=== PATIENT | male | born 1990 | race Caucasian/White ===

== ENCOUNTER 2017-09-17 13:23 | Inpatient (IN) | payer OTHER ==
[2017-09-17] MEDS ORDERED: ISOVUE-370 76%-LOCM 1 ML ONE (15:43)
[2017-09-17] MEDS ORDERED: Morphine 4 MG/ML VIAL ONE ×2 (16:02→17:41)
[2017-09-17 16:14] LABS: Hemoglobin 14.2 g/dL (14.0-18.0); Mean Corpuscular HGB CONC 31.7 g/dL (32.0-36.0); Mean Corpuscular Hemoglobin 27.4 pg (27.0-31.0); Mean Corpuscular Volume 86.4 fl (80.0-94.0); Mean Platelet Volume 7.3 fL (7.4-10.4); Platelet Count 499 thou/uL (130-400); RBC Distribution Width 14.6 % (11.5-14.5); White Blood Cell (WBC) Count 22.7 thou/uL (4.8-10.8)
[2017-09-17 16:37] LABS: Band 22 % (5-11); Eosinophils 1 % (0-10); Lymphocytes 6 % (21-51); MDiff Complete? YES; Monocytes 9 % (0-10); Neutrophil 62 % (42-75); PLT Morphology Comment Appears Increased; Toxic Granulation SLIGHT
[2017-09-17] MEDS ORDERED: Clindamycin/D5W 900 mg/50 ml Premix Bag ONE (17:41)
[2017-09-17] MEDS ORDERED: Piperacillin/Tazobactam 4.5 GM in Sodium Chloride 0.9% 100 ML IVPB ONE (17:45)
[2017-09-17 17:53] LABS: Bilirubin Negative (Negative); Blood, Urine Negative (Negative); Clarity CLEAR (Clear); Glucose, Urine (Dipstick) Negative (Negative); Leukocyte Negative (Negative); Nitrite Negative (Negative); Protein, Urine (Dipstick) Negative (Neg-Trace); Specific Gravity, Urine 1.021 (1.002-1.036)
[2017-09-17 18:06] LABS: Amphetamine Not Detected (NotDetected); Barbiturates Screen Not Detected (NotDetected); Benzodiazepine Screen Detected (NotDetected); Cocaine Metabolite Screen Not Detected (NotDetected); Medtox Control Line Valid? VALID (VALID); Medtox Reader # READER 4; Methadone Not Detected (NotDetected); Methamphetamine Not Detected (NotDetected); Opiate Screen Detected (NotDetected); Oxycodone Screen Not Detected (NotDetected); Phencyclidine (PCP) Not Detected (NotDetected); THC/Cannabinoid Screen Detected (NotDetected); Tricyclic Screen Not Detected (NotDetected)
[2017-09-17] MEDS ORDERED: Acetaminophen 500 MG TAB ONE (18:32)
[2017-09-17] MEDS ORDERED: Fentanyl 100 MCG/2 ML VIAL ONE (19:13)
[2017-09-17 19:40] LABS: ALT (SGPT) 24 U/L (8-55); AST (SGOT) 32 U/L (5-34); Alkaline Phosphatase 100 U/L (40-150); Anion Gap 12 mmol/L (10-20); BUN (Urea Nitrogen) 8 mg/dL (8.9-20.6); Bilirubin, Total 0.2 mg/dL (0.2-1.2); CK (CPK) 33 U/L (30-200); CRP (Inflammatory) 14.85 mg/dL (= or < 0.5); Calc. Creatinine Clearance 0 mL/min (70-130); Calcium 8.4 mg/dL (7.8-10.44); Carbon Dioxide 27 mmol/L (22-29); Chloride 100 mmol/L (98-107); Estimated GFR-MDRD Greater than 90; Globulin 3.3 g/dL (2.4-3.5); Glucose 111 mg/dL (70-105); Potassium 3.3 mmol/L (3.5-5.1); Protein, Total 6.3 g/dL (6.0-8.3); Sodium 136 mmol/L (136-145)
--- NOTE | 2017-09-17 19:56 | RAD ---
PORTABLE CHEST: 09/17/17 HISTORY: Central line placement. COMPARISON: A 03/10/17 exam. Right sided central line has been placed. Catheter tip overlies the region of the proximal to mid sup erior vena cava. I do not see any signs of pneumothorax. IMPRESSION: Placement of right sided central line. No signs of pneumothorax. POS: [facility]
[2017-09-17 20:17] LABS: Lactic Acid 0.9 mmol/L (0.5-2.2)
--- NOTE | 2017-09-17 21:08 | CT ---
CT OF PELVIS PERFORMED WITH INTRAVENOUS CONTRAST ENHANCEMENT: 09/17/17 HISTORY: Patient reported falling on right side week and a half ago. Now with fever. The intrapelvic contents are unremarkable. No significant adenopathy. No fluid collections. Osseous structures are normal. I see no evidence for osteomyelitis. There is a large superficial fluid collection in the right buttocks region. It is compressing the glu teus eric muscle. This measures 6.5 x 14 x 13 cm in size. There is no air seen associated with thi s. This could represent an infected collection. It could represent a hematoma given the history of a fall. No other findings. IMPRESSION: Large superficial fluid collection compressing the right gluteus eric musculature without deep ext ension. This could represent a hematoma. I cannot exclude this is an infected fluid collection. POS: [facility]
[2017-09-17] MEDS ORDERED: Acetaminophen 325 MG TAB PO PRN (21:34)
[2017-09-17] MEDS ORDERED: Ondansetron HCl/PF 4 MG/2 ML Vial IVP PRN (21:34)
[2017-09-17] MEDS ORDERED: Ondansetron ODT 4 MG TAB SL PRN (21:34)
[2017-09-17] MEDS ORDERED: Morphine 2 mg/2ml in 0.9% NaCl PF SYRINGE SLOW IVP PRN (21:36)
[2017-09-17] MEDS ORDERED: Dextrose 5 % And 0.9 % NaCl 1,000 ML IV SCH (21:45)
[2017-09-17] MEDS: Morphine 2 MG/ML SYRINGE SLOW IVP PRN (21:58)
[2017-09-17 23:06] VITALS: BMI 21.2
[2017-09-17] MEDS ORDERED: Clindamycin/D5W 600 MG in Premix Bag 1 BAG IVPB SCH (23:59)
[2017-09-18] MEDS: Morphine 2 MG/ML SYRINGE SLOW IVP PRN ×2 (00:44→02:56)
[2017-09-18] MEDS ORDERED: Piperacillin/Tazobactam 3.375 GM in Sodium Chloride 0.9% 100 ML IVPB SCH (02:00)
[2017-09-18] MEDS ORDERED: Ondansetron HCl/PF 4 MG/2 ML Vial IVP PRN ×2 (04:02→13:06)
[2017-09-18] MEDS ORDERED: Ondansetron ODT 4 MG TAB SL PRN (04:02)
[2017-09-18] MEDS ORDERED: Acetaminophen 500 MG TAB PO PRN (04:03)
[2017-09-18] MEDS ORDERED: Morphine 5 mg/5 ml in 0.9% NaCl/PF SYRINGE SLOW IVP PRN (04:05)
[2017-09-18] MEDS ORDERED: Morphine 2 MG/ML SYRINGE SLOW IVP PRN (04:05)
[2017-09-18] MEDS: Dextrose 5 % And 0.9 % NaCl 1,000 ML IV SCH ×4 (04:58→20:01)
[2017-09-18] MEDS: Morphine 4 MG/ML VIAL SLOW IVP PRN ×8 (04:58→22:20)
[2017-09-18] MEDS: Clindamycin/D5W 600 MG in Premix Bag 1 BAG IVPB SCH ×4 (05:04→23:34)
[2017-09-18] MEDS: Piperacillin/Tazobactam 3.375 GM in Sodium Chloride 0.9% 100 ML IVPB SCH ×3 (08:39→20:01)
[2017-09-18] MEDS ORDERED: Fentanyl 100 MCG/2 ML VIAL ONE ×2 (11:52→13:35)
[2017-09-18] MEDS ORDERED: HYDROmorphone 0.5 MG/0.5 ML SYRINGE ONE ×6 (12:54→14:33)
[2017-09-18] MEDS ORDERED: Promethazine HCl 25 MG/ML VIAL SLOW IVP PRN (13:06)
[2017-09-18] MEDS ORDERED: Promethazine HCl 25 MG/ML VIAL IM PRN (13:06)
[2017-09-18] MEDS ORDERED: HYDROmorphone 2 MG/ML VIAL SLOW IVP PRN (13:06)
[2017-09-18] MEDS ORDERED: Meperidine HCl/PF 25 MG/ML VIAL ONE (13:23)
--- NOTE | 2017-09-18 14:45 | HP ---
DATE: 09/18/2017 CHIEF COMPLAINT: Right buttock abscess. HISTORY OF PRESENT ILLNESS: Patient is a 27-year-old white male. He has a longstanding history of h eroin addiction. He notes that he has had progressive pain in his right buttock for about a week and a half. He states that he fell on this side a week and half ago or so. He also is concerned about possible spider bite. It is noted that he has had large deep abscesses drained on both of his upper extremities within the past year. He does continue to inject IV drugs. When he presented to the [facility] room, he was febrile and tachycardic. He was started on IV fluids and IV antibiotics and give n pain medication. His tachycardia resolved overnight, blood pressures remained stable. He was afeb rile at 4:00 this morning up to a temperature of 101.1. PAST MEDICAL HISTORY: Significant for prior deep abscesses in both upper extremities. He also has a n ongoing history of IV drug abuse using heroin. PAST SURGICAL HISTORY: I and D and in 2015 of right upper extremity abscess. Incision and drainage of left upper extremity abscess in 02/2017. MEDICATIONS: At home, none. ALLERGIES: SULFA MEDICATIONS. PERSONAL AND SOCIAL HISTORY: He is single, but has a girlfriend. He lives in [place]. 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 He smokes about a half-pack per day of cigarettes and denies alcohol use. REVIEW OF SYSTEMS: Otherwise, unremarkable. FAMILY HISTORY: Noncontributory. PHYSICAL EXAMINATION: VITAL SIGNS: Maximum temperature is 101.1, current temperature 98.6, pulse 92, blood pressure 118/74 . GENERAL: A well-developed, well-nourished, pleasant white male, resting in bed. He is alert and denisa ented x3. He has obvious pain in his right buttock. HEAD, EYES, EARS, NOSE, AND THROAT: Unremarkable. NECK: Supple. LUNGS: Clear to auscultation. CARDIAC: Regular rate and rhythm. ABDOMEN: Soft, nontender, nondistended. EXTREMITIES: He has a large fluctuant painful mass on his right buttock that appears to measure abou t 15 cm in maximum dimension. ASSESSMENT: Patient with a large right buttock abscess. A CT scan was obtained in the emergency mai which confirmed this. The measurements on CT scan were 14 x 13 x 6.5 cm. Laboratory studies revea led elevated white blood cell count of 22.7. PLAN: Incision and drainage. I have discussed this with the patient. Further care will depend upon intraoperative findings. He will certainly require long-term wound care, likely with packing with ina orourke.
[2017-09-18] MEDS ORDERED: Ondansetron HCl/PF 4 MG/2 ML Vial ONE (16:47)
[2017-09-18] MEDS ORDERED: Ketorolac Tromethamine 30 MG/ML VIAL ONE (16:47)
[2017-09-18] MEDS ORDERED: Propofol 200 MG/20 ML VIAL ONE (16:47)
[2017-09-18] MEDS ORDERED: Dexamethasone 20 MG/5 ML VIAL ONE (16:47)
[2017-09-18] MEDS ORDERED: Succinylcholine Chloride 20 MG/ML 10 ml SYRINGE FS ONE (16:47)
[2017-09-18] MEDS ORDERED: Lidocaine 1% PF 5 ML VIAL ONE (16:47)
[2017-09-19] MEDS: Morphine 4 MG/ML VIAL SLOW IVP PRN ×7 (00:55→10:18)
[2017-09-19] MEDS: Piperacillin/Tazobactam 3.375 GM in Sodium Chloride 0.9% 100 ML IVPB SCH ×2 (02:18→07:36)
[2017-09-19] MEDS: Clindamycin/D5W 600 MG in Premix Bag 1 BAG IVPB SCH (05:24)
[2017-09-19] MEDS: Dextrose 5 % And 0.9 % NaCl 1,000 ML IV SCH (05:35)
[2017-09-19] MEDS ORDERED: Ketorolac Tromethamine 30 MG/ML VIAL IVP PRN (05:45)
[2017-09-19 06:40] LABS: Anion Gap 14 mmol/L (10-20); BUN (Urea Nitrogen) 6 mg/dL (8.9-20.6); Calc. Creatinine Clearance 174 mL/min (70-130); Calcium 8.8 mg/dL (7.8-10.44); Carbon Dioxide 24 mmol/L (22-29); Chloride 108 mmol/L (98-107); Estimated GFR-MDRD Greater than 90; Glucose 152 mg/dL (70-105); Potassium 3.7 mmol/L (3.5-5.1); Sodium 142 mmol/L (136-145)
[2017-09-19 06:45] LABS: #Lymphocytes 1.7 thou/uL (1.20-3.40); #Monocytes 1.2 thou/uL (0.11-0.59); #Neutrophils 18.3 thou/uL (1.40-6.50); %Eosinophils 0.1 % (0.0-10.0); %Lymphocytes 8.1 % (21.0-51.0); %Monocytes 5.5 % (0.0-10.0); %Neutrophils 86.3 % (42.0-75.0); Hemoglobin 9.6 g/dL (14.0-18.0); Mean Corpuscular HGB CONC 31.4 g/dL (32.0-36.0); Mean Corpuscular Hemoglobin 27.4 pg (27.0-31.0); Mean Corpuscular Volume 87.2 fl (80.0-94.0); Mean Platelet Volume 6.3 fL (7.4-10.4); Platelet Count 484 thou/uL (130-400); RBC Distribution Width 14.1 % (11.5-14.5); Red Blood Cell (RBC) Count 3.51 mill/uL (4.70-6.10); White Blood Cell (WBC) Count 21.3 thou/uL (4.8-10.8)
[2017-09-19 08:28] VITALS: BP 111/67; TEMP 97.7
[2017-09-19] MEDS ORDERED: Morphine 4 MG/ML VIAL SLOW IVP SCH (09:15)
--- NOTE | 2017-09-19 16:11 | OP ---
DATE OF OPERATION: 09/18/2017 PREOPERATIVE DIAGNOSIS: Large right buttock abscess. POSTOPERATIVE DIAGNOSIS: Large right buttock abscess with right upper arm abscess also. OPERATION PERFORMED: Extensive incision and drainage of a 15 cm right buttock abscess, incision and drainage of right upper arm abscess measuring about 3.5 cm. SURGEON: Heber Dolan M.D. ANESTHESIA: General endotracheal. INDICATIONS: The patient is a 27-year-old white male with a history of ongoing heroin addiction. He has had extensive abscesses of both of his upper extremities for which he has undergone operative dr acosta with prolonged healing of these areas. He now presents to the hospital with a 15 cm bulging p ainful right buttock abscess. He acknowledges that this has been progressive over the past week and a half and cannot offer an explanation as to why he did not present for treatment sooner. He is febr ile and tachycardic, at that time he presented. He was hydrated with IV fluids and given IV antibiot ics and is now taken to the operating room for incision and drainage of this large right buttock absc ess. OPERATIVE PROCEDURE IN DETAIL: Informed consent was obtained. The patient was taken to the operatin g room where general endotracheal anesthesia was obtained with the patient in supine position. He wa s then rolled over in the left lateral decubitus position exposing his right buttock. This was prepp ed with ChloraPrep and draped in sterile fashion. The entire buttock is swollen, inflamed, and fluct uant. I selected an area of what appeared to be relatively thin tissue overlying the abscess and cre ated a vertical incision. A copious volume of grayish foul smelling purulent fluid was drained. Mos t of this was suctioned into the suction canister. Cultures were obtained. When the vast majority o f the purulent material had been aspirated, I inserted my finger into the abscess cavity and discerne d the borders of this and created a vertical incision measuring about 10 cm in length. The abscess c avity was then irrigated with peroxide. I measured the internal dimensions and appeared to be about 15 cm vertically by about 13 cm transversely and according to his CT scan, it was at least 6 cm in th ickness. After irrigating with peroxide, I obtained hemostasis in the cutaneous aspect with electroc autery. The entire inside of the abscess cavity was drawn and there was oozing from multiple differe nt tiny points. I thought this was best controlled with tamponade. I obtained 2 peroxide moistened Kerlix rolls and packed them into the abscess cavity. Dry gauze dressing was placed externally. The nursing staff had informed me after the patient had gone to sleep that he had an evolving similar infection on the lateral aspect of his right upper arm. This was addressed at this point. There wa s a fluctuant mass with mild overlying erythema of the right upper arm measuring about 3.5 cm vertica lly. This had an oval shape. I cleansed the skin and aspirated it, returning brownish purulent appe aring fluid. I therefore decided to proceed with incision and drainage of this as well. A vertical incision was created over this. Hemostasis again obtained with electrocautery. Cultures were obtain ed of this and sent separately. The wound was irrigated with peroxide and packed with a single perox shiloh moistened 4 x4. Dry gauze dressing was placed externally. There were no complications. The pat ient tolerated the procedure well and was taken to recovery room in stable condition.
--- NOTE | 2017-09-22 13:09 | DIS ---
ADMISSION DIAGNOSIS: Large right buttock abscess. DISCHARGE DIAGNOSES: Large right buttock abscess with a smaller right upper arm abscess. PROCEDURES PERFORMED: Incision and drainage of large right buttock abscess and a smaller right upper arm abscess. ADMISSION HISTORY: The patient is a 27-year-old white male with a long history of IV drug abuse. He had been admitted twice within the past year for incision and drainage of other her abscesses. He p resented to the hospital on the evening of 09/17/2017 with complaint of pain associated with a large right buttock abscess. He in some fashion attributed this to falling in a barn a week and a half ear lier. He was tachycardic and febrile. He was given IV fluids and antibiotics and admitted to my ser vice. HOSPITAL COURSE: The following day he was taken to the operating room where under general anesthesia performed incision and drainage of a huge right buttock abscess. This was about 15 cm in vertical l ength and 13 cm transversely. It was filled with copious amount of foul-smelling purulent material. Cultures revealed Streptococcus intermedius. His fever abated after surgery as did his tachycardia. He was packed with a couple of Kerlix rolls in his buttock and gauze in his upper arm. The day aft er his surgery, he notified nursing staff that he wanted to leave the hospital against medical advice . In my absence he was discharged home by Dr. Nava. The dressing was apparently changed prior to d ischarge. I assumed that he was instructed in wound care. I am uncertain what antibiotics he was di scharged home on. Hopefully, he was instructed to return for followup with myself in 1-2 weeks so I can follow the completion of the healing of his large abscess cavity.
== END 2017-09-19 11:05 | disposition home or self-care (01) | DRG 603 ==
LOC: ERS 13:23 → SJJU 21:29
PROVIDERS: ADMIT Specialist; ATTEND Specialist
PROC: 02HV33Z Insertion of Infusion Device into Superior Vena Cava, Percutaneous Approach (ICD-10-PCS; 2017-09-17)
PROC: 0H98XZZ Drainage of Buttock Skin, External Approach (ICD-10-PCS; principal; 2017-09-18)
PROC: 0H9BXZZ Drainage of Right Upper Arm Skin, External Approach (ICD-10-PCS; 2017-09-18)
DX: L02.31 Cutaneous abscess of buttock (principal); F11.20 Opioid dependence, uncomplicated; L02.413 Cutaneous abscess of right upper limb; F17.210 Nicotine dependence, cigarettes, uncomplicated
CPT/HCPCS: 71010; 72193; 80048; 80053; 80306; 81003; 82550; 83605; 85025; 86140; 87040; 87070; 87077; 87086; 87205; J1100; J1170; J1885; J2001; J2175; J2270; J2405; J2543; J2704; J3010; J3490; J7050

== ENCOUNTER 2017-11-19 14:02 | Emergency (ER) | payer OTHER, SELFPAY ==
[2017-11-19] MEDS ORDERED: Lidocaine 1% (PF) 30 ML VIAL ONE (14:36)
[2017-11-19 14:54] LABS: #Basophils 0.1 thou/uL (0.0-0.2); #Lymphocytes 1.7 thou/uL (1.20-3.40); #Monocytes 1.6 thou/uL (0.11-0.59); %Basophils 0.4 % (0.0-1.0); %Eosinophils 0.3 % (0.0-10.0); %Lymphocytes 9.9 % (21.0-51.0); %Monocytes 9.2 % (0.0-10.0); %Neutrophils 80.4 % (42.0-75.0); Hemoglobin 13.1 g/dL (14.0-18.0); Mean Corpuscular HGB CONC 32.1 g/dL (32.0-36.0); Mean Corpuscular Hemoglobin 27.1 pg (27.0-31.0); Mean Corpuscular Volume 84.6 fl (80.0-94.0); Mean Platelet Volume 6.6 fL (7.4-10.4); Platelet Count 407 thou/uL (130-400); RBC Distribution Width 13.9 % (11.5-14.5); Red Blood Cell (RBC) Count 4.84 mill/uL (4.70-6.10); White Blood Cell (WBC) Count 17.5 thou/uL (4.8-10.8)
[2017-11-19 15:08] LABS: ALT (SGPT) 51 U/L (8-55); AST (SGOT) 48 U/L (5-34); Albumin 4.1 g/dL (3.5-5.0); Alkaline Phosphatase 105 U/L (40-150); Anion Gap 14 mmol/L (10-20); BUN (Urea Nitrogen) 9 mg/dL (8.9-20.6); Bilirubin, Total 0.3 mg/dL (0.2-1.2); Calc. Creatinine Clearance 0 mL/min (70-130); Calcium 9.6 mg/dL (7.8-10.44); Carbon Dioxide 24 mmol/L (22-29); Chloride 102 mmol/L (98-107); Estimated GFR-MDRD Greater than 90; Globulin 4.1 g/dL (2.4-3.5); Glucose 177 mg/dL (70-105); Potassium 3.9 mmol/L (3.5-5.1); Protein, Total 8.2 g/dL (6.0-8.3); Sodium 136 mmol/L (136-145)
[2017-11-19] MEDS ORDERED: Clindamycin 150 MG CAP ONE (15:39)
== END 2017-11-19 15:40 | disposition home or self-care (01) ==
LOC: ERS 14:02
DX: L02.416 Cutaneous abscess of left lower limb (principal); L03.116 Cellulitis of left lower limb; F17.210 Nicotine dependence, cigarettes, uncomplicated
CPT/HCPCS: 10060; 36415; 80053; 85025; 87070; 87205; 99406; J2001